=== PATIENT | male | born 1970 | race Caucasian/White ===

== ENCOUNTER 2016-07-18 09:34 | Day surgery (SDC) | payer OTHER ==
[~2016-07-18] VITALS: Ht 180.3 cm; Wt 134.8 kg
[2016-07-18] VITALS (8 sets, daily range): BP systolic 122–154; BP diastolic 70–92; PULSE 80–98; RESP 14–20; O2SAT 93–98
[~2016-07-18 09:34] MED LIST: AMLO10TA5 PO; ATEN-154 PO; GABA-500 PO; LASIX PO; LOVA10TA PO; MELO-253 PO; METF1000 PO; OMEP20TA86 PO; OXYC10TA8 PO; TIZA4CAP8 PO
[2016-07-18] MEDS ORDERED: Ondansetron 2 mg/mL 2 mL Inj ONE (09:35)
[2016-07-18] MEDS ORDERED: fentaNYL-PF 50 mCg/mL 2 mL Inj ONE ×2 (09:35→10:59)
[2016-07-18] MEDS ORDERED: Propofol 10,000 mCg/mL 20 mL Inj ONE (09:35)
[2016-07-18] MEDS ORDERED: Dexamethasone 4 mg/mL Inj ONE (09:35)
[2016-07-18] MEDS ORDERED: levoFLOXacin 500 mg/100 mL D5W Premix IV ONE (10:40)
[2016-07-18 10:45] LABS: APPEARANCE,URINE TURBID (CLEAR,HAZY); COLOR,URINE RED (YELLOW); PH,URINE 5.5 (5.0-8.0)
[2016-07-18 10:48] LABS: OCCULT BLOOD,URINE LARGE (NEGATIVE)
[2016-07-18 10:50] LABS: UROBILINOGEN,URINE NORMAL (NORMAL)
[2016-07-18] MEDS: Lactated Ringer's 1,000 ML IV SCH ×2 (10:56→11:48)
[2016-07-18] MEDS ORDERED: fentaNYL-PF 50 mCg/mL 2 mL Inj IVPUSH ONE (11:00)
[2016-07-18] MEDS ORDERED: Lactated Ringer's 500 ML IV PRN (11:04)
[2016-07-18] MEDS ORDERED: Lactated Ringer's 1,000 ML IV SCH (11:04)
[2016-07-18] MEDS ORDERED: EPHEDrine Sulfate 50 mg/mL Inj IVPUSH PRN (11:05)
[2016-07-18] MEDS ORDERED: HYDROmorphone 1 mg/mL Inj IVPUSH PRN (11:05)
[2016-07-18] MEDS ORDERED: MetoCLOpramide 5 mg/mL 2 mL Inj IVPUSH PRN (11:05)
[2016-07-18] MEDS ORDERED: Labetalol 5 mg/mL 4 mL Inj IV PRN (11:05)
[2016-07-18] MEDS ORDERED: Phenylephrine 10,000 mCg/mL Inj IVPUSH PRN (11:05)
[2016-07-18] MEDS ORDERED: Dexamethasone 4 mg/mL Inj IVPUSH PRN (11:05)
[2016-07-18] MEDS ORDERED: Ondansetron 2 mg/mL 2 mL Inj IVPUSH PRN (11:05)
[2016-07-18] MEDS ORDERED: Atropine 0.4 mg/mL Inj IVPUSH PRN (11:05)
[2016-07-18] MEDS: fentaNYL-PF 50 mCg/mL 2 mL Inj IVPUSH PRN ×4 (11:10→13:50)
[2016-07-18] MEDS: Levofloxacin 500 mg/100 mL D5W IV ONE (11:48)
[2016-07-18] MEDS ORDERED: Iopamidol-300 50 mL Inj IV ONE (11:50)
--- NOTE | 2016-07-18 12:15 | PCM.HPANE ---
Patient Data Surgeon Admitting Provider: Attending Provider:Bela Josih MD Primary Care Physician:Lesley Ayala Other Provider:Rocio Whitman Anesthesia Reason for Visit Left Kidney Stone Ht/WT & BMI Height (Feet): 6 Height (Inches): 0 Weight (Kilograms): 133.628 Body Mass Index 39.00 Allergies Coded Allergies: meperidine (Verified Adverse Reaction, Severe, panic disorder,personality alteration, 07/13/16) morphine (Verified Adverse Reaction, Severe, panic disorder,personality alteration, 07/13/16) Past Anesthesia History Anesthesia History: Denies:: Abnormal Airway, Anesthesia Reactions, Difficult Intubation, Fam Anesthesia Reaction, Fam Malignant Hypertherm, Malignant Hyperthermia Additional Information: reports sore neck and throat after last cysto Diabetes History Hx Diabetes?: Yes (03/2015 HGB A1C 6.6) Type of Diabetes: Type II Glycemic Control: Oral Medication MRSA MRSA: No Medications Hypertension Medication: Yes (NORVASC,LASIX) Home Meds Incl Beta Conchita: Yes (TENORMIN) Reported Medications Tizanidine 4 Mg Capsule4 Mg PO Q8H PRN PRN 07/13/16 Atenolol (Tenormin)25 Mg Zyoyym92 Mg PO DAILY 30 Days Ref 0 07/13/16 oxyCODONE 10 Mg Sjujls29 Mg PO Q8H PRN For Pain Ref 0 07/13/16 Omeprazole 20 Mg Tablet.dr20 Mg PO DAILY 07/13/16 Amlodipine (Norvasc)10 Mg Pyvyeu44 Mg PO DAILY Ref 0 07/13/16 Gabapentin 100 Mg Fdviojr887 Mg PO BID 30 Days Ref 0 07/13/16 Metformin (Glucophage)1,000 Mg Tablet1,000 Mg PO BID Ref 0 07/13/16 Meloxicam 15 Mg Soafmx75 Mg PO DAILY 30 Days Ref 0 07/13/16 Lovastatin 10 Mg Hcihdt29 Mg PO HS #30 TABLET Ref 0 07/13/16 [Lasix ] No Conflict Check20 Mg PO DAILY 07/13/16 History History of ENT Problems?: No HEENT History: Denies:: Abnormal Airway Cataracts Difficult Intubation Dysphagia Glaucoma Hearing Problem Sinus Problem TMJ Denture Type: None Teeth Condition: Broken Teeth Hx of Heart Problems?: Yes Cardiovascular History: Positive for:: Hypertension (HYPERLIPIDEMIA) Denies:: Heart Murmur Hx of Respiratory Problem?: No Respiratory History: Denies:: Use of C-PAP Machine Hx Neurologic Problems?: Yes Other Neurological Pertinent: C/OF DIABETIC PERIPHERAL NEUROPATHY Hx of GI Problems?: Yes Hx of Problems?: Yes Genitourinary History: Positive for:: Kidney Stones (HX PRIOR STONES LT KIDNEY STONE=CURRENT PROBLEM C/OF NAUSEA,FLANK PAIN) Denies:: Urinary Tract Infection Other Pertinent History: S/P CYSTOS,STENT/URS Male Hx: Denies:: Prostate Problems Scrotal Mass Testicular Surgery Skin History: Denies:: History Skin Disorders? Pressure Ulcers Hx Musculoskeletal Problems?: Yes Musculoskeletal History: Positive for:: Musculoskeletal Trauma (C/OF RT SHOULDER PAIN) Denies:: Back Injury (C/OF LOWER BACK & NECK PAIN) Hx of Psycho/Social Problems?: No Hx Surgeries?: Yes (CYSTOS, URETERAL STENT/URS) Hx Any Other Health Problems?: Yes Other History: Denies:: Cancer Endocrine Disease Hospitalization Thyroid Disease History Blood Transfusions: Denies:: Blood Transfuse Reaction Blood Transfusions Hx Diabetes: Yes (03/2015 HGB A1C 6.6) Have You Smoked inLast 12 mo: YesApprox How Many Cigarettes/day: 1 PPD X 17YRS Stop/Bang S-Snoring: Do You Snore Loudly: No T-Tired: feel tired, fatigued: No O-Obsered: Observed not breath: No P-Blood Pressure: treated: Yes B- Body Mass Index > 35 kg/m2: Yes A- Age over 50: No N- Neck Large Circumference: Yes G- Gender Male: Yes DANIEL Total Score: 4 DANIEL Risk Assessment: High Risk, =/>3 Yes Risk Assessment Category Category 1A: Patient has history of documented sleep apnea, and HAS NOT received any narcotic, sedative or anesthesia administration during this stay. Category 1B: Patient has history of documented sleep apnea, and HAS received any narcotic , sedative or anesthesia administration during this stay Category 2: Patient has SUSPECTED Obstructive Sleep Apnea, and HAS received any narcotic , sedative or anesthesia administration during this stay. Category 3: Patient has SUSPECTED Obstructive Sleep Apnea and HAS NOT received narcotic, sedative or anesthesia administration during this stay. Category 4: Outpatient in Procedural Areas with known sleep apnea or who screen positive for High Risk via the STOP/BANG questionnaire. Exam Exam General Appearance: Alert, Oriented X3, Cooperative HEENT/AIRWAY: MP 3 Lungs: Clear to Auscultation Heart: Exam Unremarkable, Regular Rate/Rhythm Plan Impression Patient chart reviewed, patient interviewed and anesthestic plan with risks, benefits, and alternatives discussed, and informed consent obtained. ASA Physical Status: ASA2 Mod Systemic Disease Anesthetic Plan: GA Bene/Risks/Altern/Consents: Yes HP Complete Prior to Induction: Yes Joey Rosenberg DO Jul 18, 2016 09:49
[2016-07-18] MEDS ORDERED: Lactated Ringer's 1,000 ML IV ONE (12:50)
[2016-07-18] MEDS ORDERED: Belladonna Alk-Opium 60 mg Rectal Suppository RECTAL ONE ×2 (13:10→13:14)
[2016-07-18] MEDS ORDERED: Ondansetron 8 mg ODT Tablet PO PRN ×2 (13:30→13:40)
[2016-07-18] MEDS ORDERED: HYDROcodone-APAP 5-325 mg Tablet PO PRN (13:30)
[2016-07-18] MEDS ORDERED: Phenazopyridine 97.5 mg Tablet PO PRN (13:30)
[2016-07-18] MEDS ORDERED: oxyCODONE-Acetamin 5-325 mg Tablet PO PRN (13:40)
--- NOTE | 2016-07-18 14:18 | PCM.ANEP1 ---
Post Anesthesia Phase 1 PACU Phase 1 Assessment Vital Signs Vital Signs Date Time Temp Pulse Resp B/P Pulse Ox O2 Delivery O2 Flow Rate FiO2 07/18/16 13:53 80 15 154/87 93 Room Air 07/18/16 13:40 85 14 152/79 94 Room Air 07/18/16 13:35 90 15 140/86 96 Room Air 07/18/16 13:31 95 14 154/80 97 Simple Mask 10 07/18/16 13:25 36.5 87 17 153/92 98 Simple Mask 07/18/16 11:15 36.1 84 20 122/70 97 Room Air Anesthetic Administered: GA Level of Alertness: Awake, talking MARTIN's with Equal Strength: Yes Pain: No Nausea or Vomiting: No Oxygen Delivery: Simple Mask Lungs: Clear to Auscultation Dermatome Level: Full Sensation Complications: No Follow up Care: No Patient Instructions Provided: Yes Joey Rosenberg DO Jul 18, 2016 14:18
--- NOTE | 2016-07-19 09:41 | OP ---
[address] [address] OPERATIVE REPORT PATIENT: MICHAEL BELTRAN : 1970 MR#: [id number] ADMIT: 07/18/2016 JOB ID: [id number] DATE OF SURGERY: 07/18/2016 PROCEDURE NAME: Left-sided ureteroscopy, laser lithotripsy, basket stone extraction and left-sided double-J stent change. SURGEON: Bela Joshi M.D. ANESTHESIA: General. PREOPERATIVE DIAGNOSIS(ES): Likely impacted proximal ureteral calculus status post stent placement. POSTOPERATIVE DIAGNOSIS(ES): Likely impacted proximal ureteral calculus status post stent placement. INDICATIONS: The patient is a 46-year-old gentleman with a history of nephrolithiasis having presented 1-2 weeks prior with intractable pain from a proximal ureteral calculus on the left, 6, 7, 8 mm in size. He was set up for ureteroscopy if possible. This was not possible due to nondilated state of his distal ureter and impaction of the stone. Although he was stented, has had some difficult time with his stents with discomfort and ongoing hematuria and presents today for elective attempted ureteroscopic stone extraction and stent extraction if possible. PROCEDURE IN DETAIL: After appropriate informed consent was obtained, the patient was brought to the operating room. He received IV antibiotics prior to onset of procedure. SCDs were placed. Adequate general anesthesia was induced. He was carefully placed in the dorsal lithotomy position. All pressure points carefully padded. Rigid scope was introduced into the patient's bladder which was surveyed. The urine was noted to be rather bloody and visualization was difficult. There were some normal appearing. reactive changes around the ureteral orifice. The remainder of the bladder appeared clear of any signs of inflammation or infection. Distal end of the stent was grasped and was brought down to the meatus. We passed a wire up through it without difficulty into good position in the renal pelvis fluoroscopically. We then used a dual-lumen catheter to place a second wire, used a 14-Wolof outer diameter access sheath to slide up over one of the wires leaving the second one outside of the access sheath as a safety wire throughout the course of the case. The access sheath slid up reasonably well with only minimal pressure needed. We then got out the flexible ureteroscope which was advanced up into the access sheath. At the termination of the access sheath several cm below the ureteral pelvic junction, there was a great deal of inflammation seen and an impacted stone. We used a 273 micron laser fiber to break this into small pieces. Several pieces were basketed out. We pulled another couple of pieces out of the renal pelvis. We did not feel to leave any pieces behind that were larger than 1-2 mm in size. Due to the amount of inflammation and edema present at the site of the previously impacted stone, we elected to go ahead and replace a stent. The ureter itself was cleared while removing the access sheath leaving a safety wire in place. We then backloaded the safety wire through the cystoscope and advanced a 6-Wolof x 24 cm double-J stent over the wire under fluoroscopic and direct visual guidance into good position with a curl in the renal pelvis and a curl in the patient's bladder. There was bloody efflux from manipulation of the stone. This was irrigated out and the string was left on the stent. The patient was given a dose of Toradol. Bladder was drained. He was awakened, taken in stable condition to the postanesthesia care unit.
[2016-07-26 09:13] LABS: Stone Color Brown (.)
== END 2016-07-18 23:59 | disposition home or self-care (01) ==
LOC: SAS 09:34
PROVIDERS: ATTEND Urology
DX: N20.0 Calculus of kidney (principal); I10 Essential (primary) hypertension; K21.9 Gastro-esophageal reflux disease without esophagitis; E11.9 Type 2 diabetes mellitus without complications; Z79.84 Long term (current) use of oral hypoglycemic drugs; Z87.891 Personal history of nicotine dependence
CPT/HCPCS: 52356; 74420; 81000; 82360; 87086; C2617; J1100; J1885; J2405; J3010; J7120; Q9967